=== PATIENT | male | born 1955 | race African-American/Black ===

== ENCOUNTER 2017-06-06 09:43 | Emergency (ER) | payer MEDICARE, MEDICAID ==
[~2017-06-06] VITALS: Ht 188 cm; Wt 118.0 kg
[~2017-06-06 09:43] MED LIST: AMA4; AMLO10TA4; ASPI-1159 PO; CIME400T; CLON0.1T PO; CLOP75TA33 PO; DILT240C92 PO; FURO20TA4 PO; GABA-531 PO; HYDR-3280 PO; HYDR100T26 PO; METO50TA95; MORP30TA66 PO; OMEP20CA4; SIMV40TA2
[2017-06-06 09:59] VITALS: BP 195/107
== END 2017-06-06 15:57 | disposition left against medical advice (07) ==
LOC: ER 11:21
DX: Z53.21 Procedure and treatment not carried out due to patient leaving prior to being seen by health care provider (principal)

== ENCOUNTER 2017-07-15 15:26 | Emergency (ER) | payer MEDICARE, MEDICAID ==
[~2017-07-15] VITALS: Ht 190.5 cm; Wt 123.0 kg
[2017-07-15] MEDS ORDERED: SODIUM CHLORIDE 0.9% 1,000 ML IV ONE (15:53)
[2017-07-15] MEDS ORDERED: INSULIN REGULAR (HUMULIN R) UD 100 UNITS/ML SYR IV ONE (16:00)
[2017-07-15 16:40] LABS: BASOPHILS % 0.8 % (0.0-2.0); EOSINOPHILS % 2.1 % (0.0-5.0); HEMATOCRIT. 27.1 % (42.0-52.0); HEMOGLOBIN. 9.3 g/dL (14.0-18.0); LYMPHOCYTES % 17.6 % (20.0-50.0); MEAN CORPUSCULAR HEMOGLOBIN 29.6 pg (28.0-32.0); MEAN CORPUSCULAR VOLUME 86.8 fL (80.0-94.0); MEAN PLATELET VOLUME 8.5 fl (7.4-10.4); MONOCYTES % 7.6 % (2.0-8.0); NEUTROPHILS % 71.9 % (40.0-76.0); PLATELET 220 x1000/uL (130-400); RED BLOOD CELL COUNT 3.13 mill/uL (4.7-6.1); RED CELL DISTRIBUTION WIDTH 15.2 % (11.6-14.6)
[2017-07-15 16:48] VITALS: BP 129/76
[2017-07-15 16:52] LABS: PHOSPHORUS 4.2 mg/dL (2.5-4.9)
== END 2017-07-15 18:34 | disposition left against medical advice (07) ==
LOC: ER 15:46
DX: E11.649 Type 2 diabetes mellitus with hypoglycemia without coma (principal); I10 Essential (primary) hypertension; E11.9 Type 2 diabetes mellitus without complications; F17.200 Nicotine dependence, unspecified, uncomplicated; Z79.82 Long term (current) use of aspirin; Z86.73 Personal history of transient ischemic attack (TIA), and cerebral infarction without residual deficits; Z89.9 Acquired absence of limb, unspecified
CPT/HCPCS: 36415; 80048; 82962; 83735; 84100; 85025; 96360; 99284; J1815; J7030

== ENCOUNTER 2017-11-26 20:48 | Inpatient (IN) | payer MEDICARE, MEDICAID ==
[~2017-11-26] VITALS: Ht 188 cm; Wt 118.9 kg
[2017-11-26 21:37] LABS: BASOPHILS % 0.6 % (0.0-2.0); EOSINOPHILS % 1.5 % (0.0-5.0); HEMATOCRIT. 25.8 % (42.0-52.0); HEMOGLOBIN. 8.5 g/dL (14.0-18.0); LYMPHOCYTES % 13.3 % (20.0-50.0); MEAN CORPUSCULAR HEMOGLOBIN 29.3 pg (28.0-32.0); MEAN CORPUSCULAR VOLUME 89.3 fL (80.0-94.0); MEAN PLATELET VOLUME 9.6 fl (7.4-10.4); MONOCYTES % 4.7 % (2.0-8.0); NEUTROPHILS % 79.9 % (40.0-76.0); PLATELET 223 x1000/uL (130-400); RED BLOOD CELL COUNT 2.89 mill/uL (4.7-6.1); RED CELL DISTRIBUTION WIDTH 16.1 % (11.6-14.6)
[2017-11-26 21:41] LABS: PROTHROMBIN TIME 10.8 sec (9.4-11.6)
[2017-11-26 21:45] LABS: CHLORIDE 115 mEq/L (98-107)
[2017-11-26] MEDS ORDERED: FUROSEMIDE 40MG/4ML VIAL IVP ONE (22:30)
[2017-11-26] MEDS ORDERED: ENALAPRIL 2.5MG/2ML VIAL 2ML IV ONE (22:30)
[2017-11-26] MEDS ORDERED: ASPIRIN 325MG EC TABLET PO ONE (23:15)
[2017-11-27] VITALS (11 sets, daily range): BP systolic 101–208; BP diastolic 53–110
[2017-11-27 00:08] LABS: BG BASE EXCESS -6.8 mmol/L (-2.0-2.0); BG CARBOXYHEMOGLOBIN 0.3 % (0.5-1.5); BG DEOXYHEMOGLOBIN 0.7 % (0.0-5.0); BG FRACTION INSPIRED OXYGEN 100; BG HCO3 ACT 18.5 mmol/L (22.0-26.0); BG METHEMOGLOBIN 0.6 % (0.0-1.5); BG OXYGEN SATURATION 99.3 % (92.0-98.5); BG OXYHEMOGLOBIN 98.4 % (94.0-97.0); BG PCO2 35.9 mmHg (35.0-45.0); BG PO2 443.8 mmHg (75.0-100.0); BG PRESSURE SUPPORT 7; BG SAMPLE SITE RIGHT BRACHIAL; BG TOTAL HEMOGLOBIN 8.7 g/dL (12.0-18.0); BG VENT MODE MASK - BIPAP; BG VENT RATE 16 set
[2017-11-27] MEDS ORDERED: IPRATROPIUM/ALBUTEROL 0.5-3(2.5)MG/3ML NEB HHN PRN (01:15)
[2017-11-27] MEDS ORDERED: ACETAMINOPHEN 325MG TABLET PO PRN (01:15)
[2017-11-27] MEDS ORDERED: MORPHINE SULFATE 4 MG/ML CPJ (NOT FOR IM USE) IV PRN (01:15)
[2017-11-27 02:34] LABS: CREATINE KINASE MB FRACTION 16.6 ng/mL (0.5-3.6); TROPONIN I 0.12 ng/mL (0.00-0.04)
[2017-11-27] MEDS: HYDRALAZINE HCL 50MG TABLET PO SCH ×4 (03:34→22:11)
[2017-11-27] MEDS: CLONIDINE 0.2MG TABLET PO SCH ×4 (03:35→22:12)
[2017-11-27] MEDS: OMEPRAZOLE 20MG CAPSULE EXTENDED RELEASE PO SCH (08:22)
[2017-11-27] MEDS: GLIMEPIRIDE 4MG TABLET PO SCH (08:23)
[2017-11-27] MEDS ORDERED: NON FORMULARY PATIENT HOME MED EA PO SCH (09:00)
[2017-11-27] MEDS ORDERED: FUROSEMIDE 40MG/4ML VIAL IVP SCH (09:00)
[2017-11-27] MEDS: GABAPENTIN 300MG CAPSULE PO SCH ×3 (09:44→17:02)
[2017-11-27] MEDS: ASPIRIN 81MG TABLET PO SCH (09:44)
[2017-11-27] MEDS: CLOPIDOGREL 75MG TABLET PO SCH (09:44)
[2017-11-27] MEDS: AMLODIPINE 10MG TABLET PO SCH (09:44)
[2017-11-27] MEDS: METOPROLOL TARTRATE 50MG TABLET PO SCH ×2 (09:45→22:12)
[2017-11-27] MEDS: HEPARIN 5000 UNITS/ML VIAL SUBCUT SCH ×2 (09:46→22:13)
[2017-11-27 12:27] LABS: BASOPHILS % 0.2 % (0.0-2.0); EOSINOPHILS % 1.7 % (0.0-5.0); HEMATOCRIT. 22.2 % (42.0-52.0); HEMOGLOBIN. 7.1 g/dL (14.0-18.0); LYMPHOCYTES % 12.5 % (20.0-50.0); MEAN CORPUSCULAR HEMOGLOBIN 28.6 pg (28.0-32.0); MEAN CORPUSCULAR VOLUME 89.2 fL (80.0-94.0); MEAN PLATELET VOLUME 9.8 fl (7.4-10.4); MONOCYTES % 4.9 % (2.0-8.0); NEUTROPHILS % 80.7 % (40.0-76.0); PLATELET 164 x1000/uL (130-400); RED BLOOD CELL COUNT 2.48 mill/uL (4.7-6.1); RED CELL DISTRIBUTION WIDTH 15.7 % (11.6-14.6)
[2017-11-27 12:55] LABS: CHLORIDE 116 mEq/L (98-107)
[2017-11-27 13:03] LABS: HDL CHOLESTEROL 46 mg/dL (40-59); LDL CHOLESTEROL 137 mg/dL (5-100); TROPONIN I 0.11 ng/mL (0.00-0.04)
[2017-11-27] MEDS ORDERED: SODIUM POLYSTYRENE SULFONATE 15 G/60 ML BOT PO NR (13:45)
[2017-11-27] MEDS ORDERED: NICOTINE 21MG PATCH TD NR (16:00)
[2017-11-27] MEDS ORDERED: ATORVASTATIN CALCIUM 20MG TABLET PO SCH (21:00)
[2017-11-28] VITALS (11 sets, daily range): BP systolic 121–160; BP diastolic 65–98
[2017-11-28] MEDS: GLIMEPIRIDE 4MG TABLET PO SCH (06:39)
[2017-11-28] MEDS: HYDRALAZINE HCL 50MG TABLET PO SCH ×2 (06:39→14:38)
[2017-11-28] MEDS: OMEPRAZOLE 20MG CAPSULE EXTENDED RELEASE PO SCH (06:39)
[2017-11-28] MEDS: CLONIDINE 0.2MG TABLET PO SCH ×2 (06:39→14:38)
[2017-11-28 07:16] LABS: BASOPHILS % 0.4 % (0.0-2.0); EOSINOPHILS % 1.3 % (0.0-5.0); HEMATOCRIT 24.8 % (42.0-52.0); HEMATOCRIT. 24.8 % (42.0-52.0); HEMOGLOBIN 8.1 g/dL (14.0-18.0); HEMOGLOBIN. 8.1 g/dL (14.0-18.0); LYMPHOCYTES % 15.1 % (20.0-50.0); MEAN CORPUSCULAR HEMOGLOBIN 28.9 pg (28.0-32.0); MEAN PLATELET VOLUME 10.4 fl (7.4-10.4); MONOCYTES % 6.8 % (2.0-8.0); NEUTROPHILS % 76.4 % (40.0-76.0); PLATELET 175 x1000/uL (130-400); RED BLOOD CELL COUNT 2.82 mill/uL (4.7-6.1); RED CELL DISTRIBUTION WIDTH 15.9 % (11.6-14.6)
[2017-11-28] MEDS ORDERED: SODIUM POLYSTYRENE SULFONATE 15 G/60 ML BOT PO NR (08:45)
[2017-11-28] MEDS ORDERED: NICOTINE 21MG PATCH TD SCH (09:00)
[2017-11-28] MEDS ORDERED: FUROSEMIDE 40MG/4ML VIAL IVP SCH (09:00)
[2017-11-28] MEDS: AMLODIPINE 10MG TABLET PO SCH (09:02)
[2017-11-28] MEDS: CITRIC ACID/SODIUM CITRATE SOLN 30ML UDC PO SCH ×2 (09:02→13:20)
[2017-11-28] MEDS: ASPIRIN 81MG TABLET PO SCH (09:02)
[2017-11-28] MEDS: METOPROLOL TARTRATE 50MG TABLET PO SCH (09:02)
[2017-11-28] MEDS: HEPARIN 5000 UNITS/ML VIAL SUBCUT SCH (09:03)
[2017-11-28] MEDS: CLOPIDOGREL 75MG TABLET PO SCH (09:14)
[2017-11-28] MEDS ORDERED: EPOETIN ALFA 10000UNITS/ML VIAL SUBCUT SCH (21:00)
== END 2017-11-28 15:40 | disposition home or self-care (01) | DRG 291 ==
LOC: ER 20:55 → 5EST 23:09 → EDBEDREQTM 23:12 → EDBEDREQ 23:12 → ENRESERV 23:23
PROVIDERS: ADMIT Internal Medicine; ATTEND Internal Medicine
PROC: 5A09357 Assistance with Respiratory Ventilation, Less than 24 Consecutive Hours, Continuous Positive Airway Pressure (ICD-10-PCS; principal; 2017-11-26)
PROC: 30233N1 Transfusion of Nonautologous Red Blood Cells into Peripheral Vein, Percutaneous Approach (ICD-10-PCS; 2017-11-27)
DX: I13.2 Hypertensive heart and chronic kidney disease with heart failure and with stage 5 chronic kidney disease, or end stage renal disease (principal); J96.00 Acute respiratory failure, unspecified whether with hypoxia or hypercapnia; E87.2 Acidosis; N18.6 End stage renal disease; N17.9 Acute kidney failure, unspecified; J44.1 Chronic obstructive pulmonary disease with (acute) exacerbation; M62.82 Rhabdomyolysis; E11.22 Type 2 diabetes mellitus with diabetic chronic kidney disease; D63.1 Anemia in chronic kidney disease; I50.9 Heart failure, unspecified; E87.5 Hyperkalemia; F17.210 Nicotine dependence, cigarettes, uncomplicated; Z79.82 Long term (current) use of aspirin; Z79.84 Long term (current) use of oral hypoglycemic drugs; Z79.899 Other long term (current) drug therapy; Z87.01 Personal history of pneumonia (recurrent); Z72.89 Other problems related to lifestyle; Z99.2 Dependence on renal dialysis
CPT/HCPCS: 36415; 36430; 36600; 70450; 71045; 76770; 80048; 80053; 80061; 82375; 82550; 82553; 82805; 82962; 83036; 83880; 84484; 85025; 85027; 85610; 86850; 86900; 86920; 93005; 93306; 94660; 96374; 96375; 99291; J1644; J1940; J3490; J7050; P9016

== ENCOUNTER 2017-11-29 10:10 | Inpatient (IN) | payer MEDICARE, MEDICAID ==
[~2017-11-29] VITALS: Ht 188 cm; Wt 115.7 kg
[~2017-11-29 10:10] MED LIST changes: -FURO20TA4 PO; -GABA-531 PO
[2017-11-29 11:27] LABS: BASOPHILS % 0.6 % (0.0-2.0); EOSINOPHILS % 0.8 % (0.0-5.0); HEMOGLOBIN. 8.3 g/dL (14.0-18.0); LYMPHOCYTES % 7.4 % (20.0-50.0); MEAN CORPUSCULAR HEMOGLOBIN 29.5 pg (28.0-32.0); MEAN CORPUSCULAR VOLUME 89.2 fL (80.0-94.0); MEAN PLATELET VOLUME 10.2 fl (7.4-10.4); MONOCYTES % 5.2 % (2.0-8.0); PLATELET 174 x1000/uL (130-400); RED CELL DISTRIBUTION WIDTH 15.9 % (11.6-14.6)
[2017-11-29 11:30] LABS: PROTHROMBIN TIME 10.7 sec (9.4-11.6)
[2017-11-29 11:32] LABS: CHLORIDE 115 mEq/L (98-107)
[2017-11-29] MEDS ORDERED: FUROSEMIDE 40MG/4ML VIAL IVP ONE (12:00)
[2017-11-29] MEDS ORDERED: ASPIRIN 325MG TABLET PO ONE (12:00)
[2017-11-29] MEDS ORDERED: LEVOFLOXACIN 750MG PREMIX 150 ML IV ONE (12:00)
[2017-11-29] MEDS ORDERED: NITROGLYCERIN OINT 1GM/INCH UDPKT TD ONE (12:00)
[2017-11-29] MEDS ORDERED: HYDROCODONE/ACETAMINOPHEN 5/325MG TABLET PO PRN (15:30)
[2017-11-29] MEDS ORDERED: ENOXAPARIN 40MG/0.4ML SYR SUBCUT SCH (15:30)
[2017-11-29] MEDS ORDERED: MAGNESIUM/ALUMINUM HYDROXIDE/SIMETHICONE 30ML UDC PO PRN (15:30)
[2017-11-29] MEDS ORDERED: DOCUSATE SODIUM 100MG CAPSULE PO PRN (15:30)
[2017-11-29] MEDS ORDERED: ACETAMINOPHEN 325MG TABLET PO PRN (15:30)
[2017-11-29] MEDS ORDERED: DIPHENHYDRAMINE 50MG/ML VIAL IV PRN (15:30)
[2017-11-29] MEDS ORDERED: CLONIDINE 0.1MG TABLET PO PRN (15:30)
[2017-11-29] MEDS ORDERED: IPRATROPIUM/ALBUTEROL 0.5-3(2.5)MG/3ML NEB INH PRN (15:30)
[2017-11-29] MEDS ORDERED: ONDANSETRON HCL 4MG/2ML VIAL IV PRN (15:30)
[2017-11-29 17:00] VITALS: BP 170/96
[2017-11-29] MEDS: ASPIRIN 81MG EC TABLET PO SCH (17:47)
[2017-11-29] MEDS: AMLODIPINE 10MG TABLET PO SCH (17:47)
[2017-11-29] MEDS ORDERED: ENOXAPARIN 30MG/0.3ML SYR SUBCUT SCH (18:00)
[2017-11-29] MEDS ORDERED: DEXTROSE 50% WATER 50ML SYRINGE IV PRN (19:30)
[2017-11-29 20:00] VITALS: BP 154/89
[2017-11-29] MEDS: INSULIN LISPRO 100 UNITS/ML SUBCUT SCH (20:37)
[2017-11-29] MEDS: BLOOD SUGAR DIAGNOSTIC STRIP TEST SCH (20:37)
[2017-11-30] VITALS: BP 138/69
[2017-11-30 04:00] VITALS: BP 150/83
[2017-11-30] MEDS: INSULIN LISPRO 100 UNITS/ML SUBCUT SCH ×2 (06:13→12:13)
[2017-11-30] MEDS: BLOOD SUGAR DIAGNOSTIC STRIP TEST SCH ×2 (06:13→12:13)
[2017-11-30 07:24] LABS: BASOPHILS % 0.4 % (0.0-2.0); EOSINOPHILS % 1.7 % (0.0-5.0); HEMATOCRIT. 24.2 % (42.0-52.0); HEMOGLOBIN. 8.1 g/dL (14.0-18.0); LYMPHOCYTES % 14.9 % (20.0-50.0); MEAN CORPUSCULAR HEMOGLOBIN 29.6 pg (28.0-32.0); MEAN CORPUSCULAR VOLUME 88.1 fL (80.0-94.0); MEAN PLATELET VOLUME 10.3 fl (7.4-10.4); MONOCYTES % 5.9 % (2.0-8.0); NEUTROPHILS % 77.1 % (40.0-76.0); PLATELET 176 x1000/uL (130-400); RED BLOOD CELL COUNT 2.75 mill/uL (4.7-6.1); RED CELL DISTRIBUTION WIDTH 15.7 % (11.6-14.6)
[2017-11-30 07:46] VITALS: BP 165/91
[2017-11-30] MEDS: AMLODIPINE 10MG TABLET PO SCH (08:29)
[2017-11-30] MEDS: ASPIRIN 81MG EC TABLET PO SCH (08:30)
[2017-11-30] MEDS ORDERED: FUROSEMIDE 40MG/4ML VIAL IV SCH ×2 (09:00→17:00)
[2017-11-30 09:13] LABS: CHLORIDE 115 mEq/L (98-107)
[2017-11-30] MEDS ORDERED: ACETYLCYSTEINE 100MG/ML 10% VIAL 4ML INH SCH (09:30)
[2017-11-30] MEDS ORDERED: SODIUM POLYSTYRENE SULFONATE 15 G/60 ML BOT PO SCH (09:30)
[2017-11-30 09:34] LABS: HDL CHOLESTEROL 46 mg/dL (40-59); LDL CHOLESTEROL 126 mg/dL (5-100)
[2017-11-30 12:20] VITALS: BP 171/92
[2017-11-30 15:10] VITALS: BP 166/90
[2017-11-30] MEDS ORDERED: SODIUM POLYSTYRENE SULFONATE 15 G/60 ML BOT PO NR (16:30)
[2017-11-30] MEDS ORDERED: EPOETIN ALFA 10000UNITS/ML VIAL SUBCUT SCH (21:00)
== END 2017-11-30 17:25 | disposition home or self-care (01) | DRG 291 ==
LOC: ER 10:10 → 8WST 11:57 → SUPCPDRO 15:14 → ENRESERV 15:27
PROVIDERS: ADMIT Hospitalist; ATTEND Hospitalist
DX: I13.2 Hypertensive heart and chronic kidney disease with heart failure and with stage 5 chronic kidney disease, or end stage renal disease (principal); J96.00 Acute respiratory failure, unspecified whether with hypoxia or hypercapnia; N17.0 Acute kidney failure with tubular necrosis; I50.23 Acute on chronic systolic (congestive) heart failure; N18.5 Chronic kidney disease, stage 5; E11.22 Type 2 diabetes mellitus with diabetic chronic kidney disease; E87.5 Hyperkalemia; E66.9 Obesity, unspecified; D63.1 Anemia in chronic kidney disease; F17.200 Nicotine dependence, unspecified, uncomplicated; Z87.01 Personal history of pneumonia (recurrent); Z79.899 Other long term (current) drug therapy; Z72.89 Other problems related to lifestyle; Z68.32 Body mass index [BMI] 32.0-32.9, adult
CPT/HCPCS: 36415; 71045; 80048; 80053; 80061; 82962; 83880; 84484; 85025; 85610; 87040; 93005; 96365; 96366; 96375; 99285; J1650; J1940; J1956; J7608

== ENCOUNTER 2017-12-01 06:38 | Inpatient (IN) | payer MEDICARE, MEDICAID ==
[~2017-12-01] VITALS: Ht 180.3 cm; Wt 108.9 kg
[2017-12-01] MEDS ORDERED: NITROGLYCERIN 50MG PREMIX 250 ML IV ONE ×2 (06:47→06:48)
[2017-12-01 07:03] LABS: BASOPHILS % 0.7 % (0.0-2.0); EOSINOPHILS % 1.2 % (0.0-5.0); HEMATOCRIT. 30.8 % (42.0-52.0); HEMOGLOBIN. 10.2 g/dL (14.0-18.0); LYMPHOCYTES % 20.4 % (20.0-50.0); MEAN CORPUSCULAR HEMOGLOBIN 29.4 pg (28.0-32.0); MEAN PLATELET VOLUME 9.6 fl (7.4-10.4); MONOCYTES % 7.4 % (2.0-8.0); NEUTROPHILS % 70.3 % (40.0-76.0); PLATELET 250 x1000/uL (130-400); RED BLOOD CELL COUNT 3.46 mill/uL (4.7-6.1); RED CELL DISTRIBUTION WIDTH 15.9 % (11.6-14.6)
[2017-12-01 07:10] LABS: INR 1.1; PROTHROMBIN TIME 11.3 sec (9.4-11.6)
[2017-12-01 07:13] LABS: CHLORIDE 116 mEq/L (98-107)
[2017-12-01] MEDS ORDERED: FUROSEMIDE 40MG/4ML VIAL IVP ONE (08:30)
[2017-12-01] MEDS ORDERED: LEVOFLOXACIN 500MG PREMIX 100 ML IV SCH ×2 (09:45→11:45)
[2017-12-01] MEDS ORDERED: GUAIFENESIN 200MG/10ML SUGAR FREE UDC PO PRN (09:45)
[2017-12-01] MEDS ORDERED: DOCUSATE SODIUM 100MG CAPSULE PO PRN (09:45)
[2017-12-01] MEDS ORDERED: CLONIDINE 0.1MG TABLET PO PRN (09:45)
[2017-12-01] MEDS ORDERED: DIPHENHYDRAMINE 50MG/ML VIAL IV PRN (09:45)
[2017-12-01] MEDS ORDERED: MORPHINE SULFATE 4 MG/ML CPJ (NOT FOR IM USE) IV PRN (09:45)
[2017-12-01] MEDS ORDERED: ONDANSETRON HCL 4MG/2ML VIAL IV PRN (09:45)
[2017-12-01] MEDS ORDERED: NA PHOS,M-B/NA PHOS,DI-BA ENEMA 118ML PR PRN (09:45)
[2017-12-01] MEDS ORDERED: LORAZEPAM 2MG/ML CPJ IV PRN (09:45)
[2017-12-01] MEDS ORDERED: IPRATROPIUM/ALBUTEROL 0.5-3(2.5)MG/3ML NEB INH PRN (09:45)
[2017-12-01] MEDS ORDERED: MAGNESIUM/ALUMINUM HYDROXIDE/SIMETHICONE 30ML UDC PO PRN (09:45)
[2017-12-01] MEDS ORDERED: BUDESONIDE 0.5MG/2ML NEB HHN SCH (10:15)
[2017-12-01 10:17] LABS: BG BASE EXCESS -9.8 mmol/L (-2.0-2.0); BG CARBOXYHEMOGLOBIN 0.3 % (0.5-1.5); BG FRACTION INSPIRED OXYGEN 21; BG HCO3 ACT 15.8 mmol/L (22.0-26.0); BG METHEMOGLOBIN 0.3 % (0.0-1.5); BG OXYGEN SATURATION 70.8 % (92.0-98.5); BG OXYHEMOGLOBIN 70.4 % (94.0-97.0); BG PCO2 33.3 mmHg (35.0-45.0); BG PH 7.293 (7.350-7.450); BG SAMPLE SITE RIGHT RADIAL; BG VENT MODE ROOM AIR
[2017-12-01] MEDS: LOSARTAN POTASSIUM 50 MG TABLET PO SCH (11:00)
[2017-12-01 11:28] LABS: BG BASE EXCESS -7.5 mmol/L (-2.0-2.0); BG CARBOXYHEMOGLOBIN 0.3 % (0.5-1.5); BG DEOXYHEMOGLOBIN 5.1 % (0.0-5.0); BG FRACTION INSPIRED OXYGEN 30; BG HCO3 ACT 17.8 mmol/L (22.0-26.0); BG METHEMOGLOBIN 0.2 % (0.0-1.5); BG OXYGEN SATURATION 94.9 % (92.0-98.5); BG OXYHEMOGLOBIN 94.4 % (94.0-97.0); BG PCO2 35.2 mmHg (35.0-45.0); BG PH 7.322 (7.350-7.450); BG PO2 85.8 mmHg (75.0-100.0); BG SAMPLE SITE RIGHT BRACHIAL; BG TOTAL HEMOGLOBIN 9.1 g/dL (12.0-18.0); BG VENT MODE NASAL CANNULA
[2017-12-01] MEDS ORDERED: LIDOCAINE HCL 1% 20ML VIAL (Pyxis) INJ ONE (11:47)
[2017-12-01] MEDS: NIFEDIPINE XL 60MG TAB PO SCH ×2 (13:28→22:24)
[2017-12-01 13:51] LABS: HEPATITIS B SURFACE AB < 3.1 mIU/mL
[2017-12-01 14:02] LABS: HEPATITIS B SURFACE ANTIGEN NEGATIVE
[2017-12-01] MEDS: HYDRALAZINE HCL 100MG TABLET PO SCH ×2 (14:21→22:24)
[2017-12-01 14:31] LABS: HEPATITIS B CORE AB IGM NEGATIVE
[2017-12-01 14:32] LABS: HEPATITIS A AB IGM React (NEGATIVE)
[2017-12-01] MEDS: CLONIDINE 0.3MG TABLET PO PRN (14:49)
[2017-12-01] MEDS ORDERED: IOHEXOL-350 100 ML BOTTLE ONE (14:57)
[2017-12-01] MEDS ORDERED: HYDROCODONE/ACETAMINOPHEN 10/325MG TABLET PO PRN (16:00)
[2017-12-01 20:30] VITALS: BP 167/91
[2017-12-01 22:00] VITALS: BP_SYST 148; BP_SYST 167; BP_DIAS 80; BP_DIAS 91
[2017-12-01] MEDS ORDERED: DEXTROSE 50% WATER 50ML SYRINGE IV PRN (23:30)
[2017-12-02] VITALS (26 sets, daily range): BP systolic 125–175; BP diastolic 62–98
[2017-12-02] MEDS: IPRATROPIUM/ALBUTEROL 0.5-3(2.5)MG/3ML NEB HHN SCH ×6 (00:48→20:25)
[2017-12-02] MEDS: BUDESONIDE 0.5MG/2ML NEB HHN SCH ×3 (00:48→20:25)
[2017-12-02] MEDS: ACETAMINOPHEN 325MG TABLET PO PRN ×2 (05:35→23:28)
[2017-12-02] MEDS: HYDRALAZINE HCL 100MG TABLET PO SCH ×3 (05:36→21:07)
[2017-12-02] MEDS: BLOOD SUGAR DIAGNOSTIC STRIP TEST SCH ×4 (06:36→20:30)
[2017-12-02] MEDS: OMEPRAZOLE 20MG CAPSULE EXTENDED RELEASE PO SCH (06:45)
[2017-12-02] MEDS: INSULIN LISPRO 100 UNITS/ML SUBCUT SCH ×4 (07:23→20:37)
[2017-12-02] MEDS: GLIMEPIRIDE 4MG TABLET PO SCH (08:03)
[2017-12-02] MEDS: CLOPIDOGREL 75MG TABLET PO SCH (08:03)
[2017-12-02] MEDS: ASPIRIN 81MG EC TABLET PO SCH (08:04)
[2017-12-02] MEDS: NIFEDIPINE XL 60MG TAB PO SCH ×2 (08:04→20:25)
[2017-12-02] MEDS: LOSARTAN POTASSIUM 50 MG TABLET PO SCH (08:04)
[2017-12-02] MEDS: METOPROLOL TARTRATE 50MG TABLET PO SCH ×2 (08:04→20:25)
[2017-12-02 08:40] LABS: BASOPHILS % 0.5 % (0.0-2.0); EOSINOPHILS % 1.4 % (0.0-5.0); HEMATOCRIT. 26.5 % (42.0-52.0); LYMPHOCYTES % 13.4 % (20.0-50.0); MEAN CORPUSCULAR HEMOGLOBIN 29.5 pg (28.0-32.0); MEAN CORPUSCULAR VOLUME 87.2 fL (80.0-94.0); MEAN PLATELET VOLUME 9.9 fl (7.4-10.4); NEUTROPHILS % 76.7 % (40.0-76.0); PLATELET 200 x1000/uL (130-400); RED BLOOD CELL COUNT 3.04 mill/uL (4.7-6.1); RED CELL DISTRIBUTION WIDTH 15.6 % (11.6-14.6)
[2017-12-02] MEDS ORDERED: ASPIRIN 81MG EC TABLET PO SCH (09:00)
[2017-12-02] MEDS ORDERED: MEDICATION NOT ON FORMULARY EA (Simvastatin (Zocor) 40 MG) PO SCH (09:00)
[2017-12-02] MEDS ORDERED: AMLODIPINE 10MG TABLET PO SCH (09:00)
[2017-12-02 09:14] LABS: CHLORIDE 106 mEq/L (98-107)
[2017-12-02 09:24] LABS: HDL CHOLESTEROL 47 mg/dL (40-59); LDL CHOLESTEROL 149 mg/dL (5-100); T4 FREE 1.09 ng/dL (0.76-1.46)
[2017-12-02] MEDS ORDERED: MAGNESIUM 2 G PREMIX 50 ML IV NR (11:30)
[2017-12-02] MEDS: ATORVASTATIN CALCIUM 20MG TABLET PO SCH (20:24)
[2017-12-03] VITALS (8 sets, daily range): BP systolic 136–192; BP diastolic 71–86
[2017-12-03] MEDS: IPRATROPIUM/ALBUTEROL 0.5-3(2.5)MG/3ML NEB HHN SCH ×3 (00:32→19:37)
[2017-12-03 06:49] LABS: BASOPHILS % 0.6 % (0.0-2.0); EOSINOPHILS % 1.1 % (0.0-5.0); HEMATOCRIT. 24.8 % (42.0-52.0); HEMOGLOBIN. 8.3 g/dL (14.0-18.0); LYMPHOCYTES % 12.7 % (20.0-50.0); MEAN CORPUSCULAR HEMOGLOBIN 29.3 pg (28.0-32.0); MEAN CORPUSCULAR VOLUME 87.8 fL (80.0-94.0); MEAN PLATELET VOLUME 9.7 fl (7.4-10.4); MONOCYTES % 8.5 % (2.0-8.0); NEUTROPHILS % 77.1 % (40.0-76.0); PLATELET 198 x1000/uL (130-400); RED BLOOD CELL COUNT 2.83 mill/uL (4.7-6.1); RED CELL DISTRIBUTION WIDTH 15.6 % (11.6-14.6)
[2017-12-03] MEDS: OMEPRAZOLE 20MG CAPSULE EXTENDED RELEASE PO SCH (06:50)
[2017-12-03] MEDS: HYDRALAZINE HCL 100MG TABLET PO SCH ×3 (06:50→21:14)
[2017-12-03 07:18] LABS: PHOSPHORUS 5.7 mg/dL (2.5-4.9)
[2017-12-03] MEDS: BLOOD SUGAR DIAGNOSTIC STRIP TEST SCH ×4 (07:50→20:00)
[2017-12-03] MEDS: INSULIN LISPRO 100 UNITS/ML SUBCUT SCH ×4 (08:00→20:06)
[2017-12-03] MEDS: LOSARTAN POTASSIUM 50 MG TABLET PO SCH (08:51)
[2017-12-03] MEDS: ASPIRIN 81MG EC TABLET PO SCH (08:51)
[2017-12-03] MEDS: CLOPIDOGREL 75MG TABLET PO SCH (08:51)
[2017-12-03] MEDS: GLIMEPIRIDE 4MG TABLET PO SCH (08:51)
[2017-12-03] MEDS: METOPROLOL TARTRATE 50MG TABLET PO SCH ×2 (08:52→20:02)
[2017-12-03] MEDS: NIFEDIPINE XL 60MG TAB PO SCH ×2 (08:52→20:01)
[2017-12-03] MEDS: LEVOFLOXACIN 250MG PREMIX 50 ML IV SCH (08:53)
[2017-12-03] MEDS: ENOXAPARIN 40MG/0.4ML SYR SUBCUT SCH (11:00)
[2017-12-03] MEDS: NICOTINE 7MG PATCH TD SCH (12:52)
[2017-12-03] MEDS: BUDESONIDE 0.5MG/2ML NEB HHN SCH (19:39)
[2017-12-03] MEDS: ATORVASTATIN CALCIUM 20MG TABLET PO SCH (20:01)
[2017-12-04] VITALS (20 sets, daily range): BP systolic 147–199; BP diastolic 68–93
[2017-12-04] MEDS: IPRATROPIUM/ALBUTEROL 0.5-3(2.5)MG/3ML NEB HHN SCH ×7 (00:19→19:39)
[2017-12-04] MEDS: HYDRALAZINE HCL 100MG TABLET PO SCH ×3 (05:21→20:49)
[2017-12-04] MEDS: OMEPRAZOLE 20MG CAPSULE EXTENDED RELEASE PO SCH (06:32)
[2017-12-04 06:44] LABS: BASOPHILS % 0.5 % (0.0-2.0); EOSINOPHILS % 2.6 % (0.0-5.0); HEMATOCRIT. 24.6 % (42.0-52.0); HEMOGLOBIN. 8.3 g/dL (14.0-18.0); LYMPHOCYTES % 16.1 % (20.0-50.0); MEAN CORPUSCULAR HEMOGLOBIN 29.7 pg (28.0-32.0); MEAN CORPUSCULAR VOLUME 87.8 fL (80.0-94.0); MEAN PLATELET VOLUME 9.3 fl (7.4-10.4); MONOCYTES % 8.8 % (2.0-8.0); PLATELET 186 x1000/uL (130-400); RED CELL DISTRIBUTION WIDTH 15.6 % (11.6-14.6)
[2017-12-04] MEDS: BLOOD SUGAR DIAGNOSTIC STRIP TEST SCH ×4 (07:34→20:53)
[2017-12-04] MEDS: INSULIN LISPRO 100 UNITS/ML SUBCUT SCH ×4 (07:55→21:29)
[2017-12-04] MEDS: BUDESONIDE 0.5MG/2ML NEB HHN SCH ×2 (08:25→19:39)
[2017-12-04] MEDS: GLIMEPIRIDE 4MG TABLET PO SCH (08:35)
[2017-12-04] MEDS: LOSARTAN POTASSIUM 100 MG TABLET PO SCH (08:36)
[2017-12-04] MEDS: METOPROLOL TARTRATE 50MG TABLET PO SCH ×2 (08:36→20:40)
[2017-12-04] MEDS: NIFEDIPINE XL 60MG TAB PO SCH ×2 (08:37→20:40)
[2017-12-04] MEDS ORDERED: HEPARIN 1000 UNITS/ML 10ML ONE (09:09)
[2017-12-04] MEDS ORDERED: SODIUM BICARBONATE 4% (2.4MEQ) 5ML VIAL IV ONE (09:09)
[2017-12-04] MEDS ORDERED: LIDOCAINE HCL 1% 20ML VIAL (Pyxis) INJ ONE (09:09)
[2017-12-04] MEDS ORDERED: FENTANYL CITRATE/PF 50MCG/ML 2ML VIAL ONE (09:13)
[2017-12-04] MEDS ORDERED: FENTANYL CITRATE/PF 50MCG/ML 2ML VIAL IV SCH (09:45)
[2017-12-04 12:12] LABS: PROTHROMBIN TIME 10.7 sec (9.4-11.6)
[2017-12-04] MEDS: ENOXAPARIN 40MG/0.4ML SYR SUBCUT SCH (13:09)
[2017-12-04] MEDS: NICOTINE 7MG PATCH TD SCH (13:10)
[2017-12-04] MEDS: CLONIDINE 0.1MG TABLET PO SCH ×2 (13:39→20:48)
[2017-12-04] MEDS: CLONIDINE 0.3MG TABLET PO PRN (17:29)
[2017-12-04] MEDS: ATORVASTATIN CALCIUM 20MG TABLET PO SCH (20:39)
[2017-12-04] MEDS ORDERED: EPOETIN ALFA 10000UNITS/ML VIAL SUBCUT SCH (21:00)
[2017-12-05] VITALS: BP 117/80
[2017-12-05] MEDS: IPRATROPIUM/ALBUTEROL 0.5-3(2.5)MG/3ML NEB HHN SCH ×4 (00:30→12:09)
[2017-12-05 04:00] VITALS: BP 151/67
[2017-12-05] MEDS: CLONIDINE 0.1MG TABLET PO SCH (05:23)
[2017-12-05] MEDS: HYDRALAZINE HCL 100MG TABLET PO SCH (05:23)
[2017-12-05] MEDS: BLOOD SUGAR DIAGNOSTIC STRIP TEST SCH ×2 (07:30→11:43)
[2017-12-05] MEDS: INSULIN LISPRO 100 UNITS/ML SUBCUT SCH ×2 (08:00→13:05)
[2017-12-05] MEDS: BUDESONIDE 0.5MG/2ML NEB HHN SCH (08:01)
[2017-12-05] MEDS ORDERED: FAMOTIDINE 20MG TABLET PO SCH (09:00)
[2017-12-05] MEDS: GLIMEPIRIDE 4MG TABLET PO SCH (09:40)
[2017-12-05] MEDS: ENOXAPARIN 40MG/0.4ML SYR SUBCUT SCH (09:41)
[2017-12-05] MEDS: NICOTINE 7MG PATCH TD SCH (09:42)
[2017-12-05 09:43] LABS: BASOPHILS % 0.6 % (0.0-2.0); HEMATOCRIT. 27.7 % (42.0-52.0); HEMOGLOBIN. 9.2 g/dL (14.0-18.0); LYMPHOCYTES % 14.1 % (20.0-50.0); MEAN CORPUSCULAR HEMOGLOBIN 29.9 pg (28.0-32.0); MEAN CORPUSCULAR VOLUME 89.7 fL (80.0-94.0); MEAN PLATELET VOLUME 9.6 fl (7.4-10.4); MONOCYTES % 7.1 % (2.0-8.0); NEUTROPHILS % 76.2 % (40.0-76.0); PLATELET 197 x1000/uL (130-400); RED BLOOD CELL COUNT 3.09 mill/uL (4.7-6.1); RED CELL DISTRIBUTION WIDTH 15.8 % (11.6-14.6)
[2017-12-05] MEDS: NIFEDIPINE XL 60MG TAB PO SCH (09:43)
[2017-12-05] MEDS: METOPROLOL TARTRATE 50MG TABLET PO SCH (09:43)
[2017-12-05] MEDS: LOSARTAN POTASSIUM 100 MG TABLET PO SCH (09:45)
[2017-12-05] MEDS: LEVOFLOXACIN 250MG PREMIX 50 ML IV SCH (09:45)
[2017-12-05 12:00] VITALS: BP 132/77
[2017-12-05 13:59] VITALS: BP 103/54
[2017-12-05 15:50] VITALS: BP 144/82
[2017-12-06] MEDS ORDERED: LEVOFLOXACIN 250MG TABLET PO SCH (11:00)
== END 2017-12-05 15:38 | disposition home or self-care (01) | DRG 286 ==
LOC: ER 06:53 → 5EST 09:00 → EDBEDREQTM 09:01 → EDBEDREQ 09:01 → EDBEDREQSVC 09:01 → CANRESERV 15:23 → ENRESERV 15:23 → EDBEDREQSVC 16:49 → ENRESERV 18:47
PROVIDERS: ADMIT Internal Medicine; ATTEND Internal Medicine
PROC: 02HV33Z Insertion of Infusion Device into Superior Vena Cava, Percutaneous Approach (ICD-10-PCS; principal; 2017-12-01)
PROC: B548ZZA Ultrasonography of Superior Vena Cava, Guidance (ICD-10-PCS; 2017-12-01)
PROC: 5A09357 Assistance with Respiratory Ventilation, Less than 24 Consecutive Hours, Continuous Positive Airway Pressure (ICD-10-PCS; 2017-12-01)
PROC: 5A1D70Z Performance of Urinary Filtration, Intermittent, Less than 6 Hours Per Day (ICD-10-PCS; 2017-12-03)
PROC: B2141ZZ Fluoroscopy of Right Heart using Low Osmolar Contrast (ICD-10-PCS; 2017-12-04)
PROC: 02PYX3Z Removal of Infusion Device from Great Vessel, External Approach (ICD-10-PCS; 2017-12-04)
PROC: 02H633Z Insertion of Infusion Device into Right Atrium, Percutaneous Approach (ICD-10-PCS; 2017-12-04)
PROC: 5A1D70Z Performance of Urinary Filtration, Intermittent, Less than 6 Hours Per Day (ICD-10-PCS; 2017-12-04)
DX: I13.2 Hypertensive heart and chronic kidney disease with heart failure and with stage 5 chronic kidney disease, or end stage renal disease (principal); I50.43 Acute on chronic combined systolic (congestive) and diastolic (congestive) heart failure; J96.01 Acute respiratory failure with hypoxia; G93.41 Metabolic encephalopathy; N17.9 Acute kidney failure, unspecified; R65.10 Systemic inflammatory response syndrome (SIRS) of non-infectious origin without acute organ dysfunction; E11.22 Type 2 diabetes mellitus with diabetic chronic kidney disease; E87.2 Acidosis; N18.6 End stage renal disease; E87.5 Hyperkalemia; I16.1 Hypertensive emergency; I42.9 Cardiomyopathy, unspecified; E78.5 Hyperlipidemia, unspecified; D64.9 Anemia, unspecified; E66.9 Obesity, unspecified; F17.210 Nicotine dependence, cigarettes, uncomplicated; I25.10 Atherosclerotic heart disease of native coronary artery without angina pectoris; J44.9 Chronic obstructive pulmonary disease, unspecified; K21.9 Gastro-esophageal reflux disease without esophagitis; Z79.4 Long term (current) use of insulin; Z79.82 Long term (current) use of aspirin; Z79.899 Other long term (current) drug therapy; Z82.49 Family history of ischemic heart disease and other diseases of the circulatory system; Z83.3 Family history of diabetes mellitus; Z87.01 Personal history of pneumonia (recurrent); Z89.421 Acquired absence of other right toe(s); Z91.15 Patient's noncompliance with renal dialysis; Z99.2 Dependence on renal dialysis; Z72.89 Other problems related to lifestyle; Z68.33 Body mass index [BMI] 33.0-33.9, adult
CPT/HCPCS: 36415; 36556; 36558; 36589; 36600; 70450; 71045; 71275; 76937; 77001; 80048; 80051; 80053; 80061; 82375; 82805; 82962; 83735; 83880; 84100; 84439; 84443; 84484; 85025; 85610; 86705; 86706; 86709; 86803; 87340; 87804; 93005; 94640; 94660; 96365; 96375; 99291; C1750; C1752; C1769; J0885; J1644; J1650; J1815; J1940; J1956; J2060; J2270; J3010; J3475; J3490; J7030; J7050; J7620; J7626; Q9967

== ENCOUNTER 2018-06-08 20:47 | Emergency (ER) | payer MEDICARE, MEDICAID ==
[~2018-06-08] VITALS: Ht 190.5 cm; Wt 112.0 kg
[2018-06-08] MEDS ORDERED: HYDRALAZINE HCL 100MG TABLET PO ONE (22:45)
[2018-06-09 04:00] VITALS: BP 169/82
== END 2018-06-09 00:21 | disposition home or self-care (01) ==
LOC: ER 20:47
DX: S99.922A Unspecified injury of left foot, initial encounter (principal); I12.0 Hypertensive chronic kidney disease with stage 5 chronic kidney disease or end stage renal disease; E11.22 Type 2 diabetes mellitus with diabetic chronic kidney disease; N18.6 End stage renal disease; F17.200 Nicotine dependence, unspecified, uncomplicated; Z99.2 Dependence on renal dialysis; Z79.899 Other long term (current) drug therapy; W19.XXXA Unspecified fall, initial encounter; Y93.89 Activity, other specified; Y92.89 Other specified places as the place of occurrence of the external cause; Y99.8 Other external cause status
CPT/HCPCS: 73630; 82962; 99284

== ENCOUNTER 2018-12-18 05:52 | Emergency (ER) | payer MEDICARE, MEDICAID ==
[~2018-12-18] VITALS: Ht 188 cm; Wt 90.0 kg
[~2018-12-18 05:52] MED LIST changes: +ASPI-1079 PO; +ATOR-2 MT; +CEPH500T MT; +METO25TA6 PO; +MINO10TA MT; +SEVE800T8 MT
[2018-12-18] MEDS ORDERED: MORPHINE SULFATE 4 MG/ML CPJ (NOT FOR IM USE) IV STA (07:27)
[2018-12-18 07:40] LABS: BASOPHILS % 0.7 % (0.0-2.0); EOSINOPHILS % 3.8 % (0.0-5.0); HEMATOCRIT. 29.7 % (42.0-52.0); HEMOGLOBIN. 9.6 g/dL (14.0-18.0); LYMPHOCYTES % 21.4 % (20.0-50.0); MEAN CORPUSCULAR HEMOGLOBIN 27.8 pg (28.0-32.0); MEAN CORPUSCULAR VOLUME 85.6 fL (80.0-94.0); MONOCYTES % 6.5 % (2.0-8.0); NEUTROPHILS % 67.6 % (40.0-76.0); PLATELET 284 x1000/uL (130-400); RED BLOOD CELL COUNT 3.46 mill/uL (4.7-6.1); RED CELL DISTRIBUTION WIDTH 19.6 % (11.6-14.6)
[2018-12-18 07:42] LABS: CHLORIDE 102 mEq/L (98-107)
[2018-12-18 07:53] LABS: INR 1.1; PROTHROMBIN TIME 10.9 sec (9.1-11.1)
[2018-12-18] MEDS ORDERED: KETOROLAC 30MG/ML VIAL IV ONE (08:15)
[2018-12-18] MEDS ORDERED: SODIUM CHLORIDE 0.9% 500 ML IV ONE (09:34)
[2018-12-18 12:55] VITALS: BP 112/60
== END 2018-12-18 12:59 | disposition home or self-care (01) ==
LOC: ER 05:52
DX: L89.159 Pressure ulcer of sacral region, unspecified stage (principal); R42 Dizziness and giddiness; Z98.890 Other specified postprocedural states; Z79.82 Long term (current) use of aspirin; Z79.899 Other long term (current) drug therapy
CPT/HCPCS: 36415; 71045; 80053; 83605; 84145; 84484; 85025; 85610; 87040; 93005; 96361; 96374; 99284; J1885; J7030; J7040; J2270

== ENCOUNTER 2019-01-25 07:39 | Inpatient (IN) | payer MEDICARE, MEDICAID ==
[~2019-01-25] VITALS: Ht 185.4 cm; Wt 86.6 kg
[2019-01-25] MEDS ORDERED: ONDANSETRON HCL 4MG/2ML INJ IV STA (08:13)
[2019-01-25] MEDS ORDERED: MORPHINE SULFATE 4 MG/ML CPJ (NOT FOR IM USE) IV STA (08:13)
[2019-01-25] MEDS ORDERED: SODIUM CHLORIDE 0.9% 1,000 ML IV ONE (08:13)
[2019-01-25 08:38] LABS: BASOPHILS % 0.7 % (0.0-2.0); EOSINOPHILS % 1.4 % (0.0-5.0); HEMATOCRIT. 40.9 % (42.0-52.0); LYMPHOCYTES % 16.1 % (20.0-50.0); MEAN CORPUSCULAR HEMOGLOBIN 29.1 pg (28.0-32.0); MEAN CORPUSCULAR VOLUME 91.9 fL (80.0-94.0); NEUTROPHILS % 75.8 % (40.0-76.0); PLATELET 293 x1000/uL (130-400); RED BLOOD CELL COUNT 4.46 mill/uL (4.7-6.1); RED CELL DISTRIBUTION WIDTH 21.8 % (11.6-14.6)
[2019-01-25 08:42] LABS: CHLORIDE 115 mEq/L (98-107)
[2019-01-25 09:12] LABS: CLARITY URINE TURBID (CLEAR); COLOR URINE YELLOW (YELLOW); KETONES URINE NEGATIVE (NEGATIVE); LEUKOCYTE ESTERASE URINE 3+ (NEGATIVE); NITRITE URINE NEGATIVE (NEGATIVE); OCCULT BLOOD URINE 1+ (NEGATIVE); PROTEIN URINE 3+ (NEGATIVE); SPECIFIC GRAVITY URINE 1.016 (1.005-1.030); UROBILINOGEN URINE 0.2 E.U./dL (0.2-1.0)
[2019-01-25] MEDS ORDERED: DEXTROSE 50% WATER 50ML SYRINGE IV ONE (10:15)
[2019-01-25] MEDS ORDERED: CEFTRIAXONE 1 G PREMIX 50 ML IV ONE (10:15)
[2019-01-25] MEDS ORDERED: SODIUM POLYSTYRENE SULFONATE 15 G/60 ML BOT PO ONE ×2 (10:15→15:45)
[2019-01-25] MEDS ORDERED: SODIUM BICARBONATE 8.4% 1 MEQ/ML 50ML SYR IV ONE (10:15)
[2019-01-25] MEDS ORDERED: ALBUTEROL (0.083%) 2.5MG/3ML NEB HHN ONE (10:15)
[2019-01-25] MEDS ORDERED: INSULIN REGULAR (HUMULIN R) 300UNITS/3ML IV ONE (10:15)
[2019-01-25] MEDS ORDERED: MORPHINE SULFATE 4 MG/ML CPJ (NOT FOR IM USE) IV ONE (11:45)
[2019-01-25] MEDS ORDERED: NITROGLYCERIN 0.4MG TABLET SL SL PRN (12:15)
[2019-01-25] MEDS ORDERED: GUAIFENESIN 200MG/10ML SUGAR FREE UDC PO PRN (12:15)
[2019-01-25] MEDS ORDERED: TRAMADOL 50MG TABLET PO PRN (12:15)
[2019-01-25] MEDS ORDERED: ONDANSETRON HCL 4MG/2ML INJ IV PRN (12:15)
[2019-01-25] MEDS ORDERED: IPRATROPIUM/ALBUTEROL 0.5-3(2.5)MG/3ML NEB INH PRN (12:15)
[2019-01-25] MEDS ORDERED: MAGNESIUM/ALUMINUM HYDROXIDE/SIMETHICONE 30ML UDC PO PRN (12:15)
[2019-01-25] MEDS ORDERED: DIPHENHYDRAMINE 50MG/ML VIAL IV PRN (12:15)
[2019-01-25] MEDS ORDERED: ZOLPIDEM TARTRATE 5MG TABLET PO PRN (12:15)
[2019-01-25] MEDS ORDERED: DOCUSATE SODIUM 100MG CAPSULE PO PRN (12:15)
[2019-01-25 14:00] VITALS: BP 151/67
[2019-01-25 14:34] LABS: *AMPHETAMINES SCREEN URINE NEGATIVE (NEGATIVE); *BARBITURATES SCREEN URINE NEGATIVE (NEGATIVE); *BENZODIAZEPINES SCREEN URINE NEGATIVE (NEGATIVE); *COCAINE SCREEN URINE NEGATIVE (NEGATIVE); METHADONE URINE SCREEN NEGATIVE (NEGATIVE)
[2019-01-25 14:35] LABS: CANNABINOID URINE SCREEN NEGATIVE (NEGATIVE); OPIATES URINE SCREEN NEGATIVE (NEGATIVE); PHENCYCLIDINE URINE SCREEN NEGATIVE (NEGATIVE)
[2019-01-25 16:22] LABS: CREATINE KINASE MB FRACTION 4.9 ng/mL (0.5-3.6)
[2019-01-25 16:48] VITALS: BP 151/67
[2019-01-25] MEDS: SEVELAMER CARBONATE 800 MG TABLET PO SCH (17:15)
[2019-01-25] MEDS: ENOXAPARIN 30MG/0.3ML SYR SUBCUT SCH (17:15)
[2019-01-25 20:00] VITALS: BP 199/79
[2019-01-25] MEDS: FAMOTIDINE 20MG TABLET PO SCH (21:10)
[2019-01-25] MEDS: HYDRALAZINE HCL 50MG TABLET PO SCH (21:10)
[2019-01-25 21:11] VITALS: BP 177/76
[2019-01-25] MEDS: CLONIDINE 0.1MG TABLET PO PRN (21:11)
[2019-01-25] MEDS: METOPROLOL TARTRATE 25MG TABLET PO SCH (21:11)
[2019-01-25 23:46] LABS: CREATINE KINASE MB FRACTION 17.1 ng/mL (0.5-3.6)
[2019-01-26] VITALS: BP 160/65
[2019-01-26 04:00] VITALS: BP 161/75
[2019-01-26] MEDS: HYDRALAZINE HCL 50MG TABLET PO SCH ×3 (05:05→21:01)
[2019-01-26 08:00] VITALS: BP 192/79
[2019-01-26] MEDS: METOPROLOL TARTRATE 25MG TABLET PO SCH ×2 (08:17→21:01)
[2019-01-26] MEDS: SEVELAMER CARBONATE 800 MG TABLET PO SCH ×3 (08:18→17:51)
[2019-01-26] MEDS: TAMSULOSIN HCL 0.4MG SR CAPSULE PO SCH (08:18)
[2019-01-26] MEDS: CLOPIDOGREL 75MG TABLET PO SCH (08:19)
[2019-01-26] MEDS: ASPIRIN 325MG EC TABLET PO SCH (09:05)
[2019-01-26] MEDS: FOLIC ACID/VITAMIN B COMP W-C TABLET PO SCH (09:05)
[2019-01-26] MEDS ORDERED: CEFTRIAXONE 1 G PREMIX 50 ML IV SCH (11:00)
[2019-01-26] MEDS: ENOXAPARIN 30MG/0.3ML SYR SUBCUT SCH (13:11)
[2019-01-26 16:01] LABS: CREATINE KINASE MB FRACTION 15.2 ng/mL (0.5-3.6)
[2019-01-26] MEDS: CLONIDINE 0.1MG TABLET PO PRN (17:58)
[2019-01-26 20:00] VITALS: BP 186/89
[2019-01-26] MEDS: FAMOTIDINE 20MG TABLET PO SCH (21:01)
[2019-01-27] VITALS: BP 201/84
[2019-01-27] MEDS: CLONIDINE 0.1MG TABLET PO PRN ×4 (00:09→23:29)
[2019-01-27 04:00] VITALS: BP 200/83
[2019-01-27] MEDS: HYDRALAZINE HCL 50MG TABLET PO SCH ×3 (06:00→21:03)
[2019-01-27 06:18] LABS: BASOPHILS % 0.6 % (0.0-2.0); EOSINOPHILS % 3.8 % (0.0-5.0); HEMATOCRIT. 37.1 % (42.0-52.0); HEMOGLOBIN. 11.8 g/dL (14.0-18.0); LYMPHOCYTES % 25.5 % (20.0-50.0); MEAN CORPUSCULAR HEMOGLOBIN 29.2 pg (28.0-32.0); MEAN CORPUSCULAR VOLUME 91.7 fL (80.0-94.0); MEAN PLATELET VOLUME 7.7 fl (7.4-10.4); MONOCYTES % 5.5 % (2.0-8.0); NEUTROPHILS % 64.6 % (40.0-76.0); PLATELET 250 x1000/uL (130-400); RED BLOOD CELL COUNT 4.05 mill/uL (4.7-6.1); RED CELL DISTRIBUTION WIDTH 22.4 % (11.6-14.6)
[2019-01-27] MEDS: SEVELAMER CARBONATE 800 MG TABLET PO SCH ×3 (07:40→17:44)
[2019-01-27 08:00] VITALS: BP 177/63
[2019-01-27] MEDS: METOPROLOL TARTRATE 25MG TABLET PO SCH ×2 (09:00→21:03)
[2019-01-27 12:00] VITALS: BP 177/71
[2019-01-27] MEDS: ASPIRIN 325MG EC TABLET PO SCH (12:14)
[2019-01-27] MEDS: FOLIC ACID/VITAMIN B COMP W-C TABLET PO SCH (12:16)
[2019-01-27] MEDS: CLOPIDOGREL 75MG TABLET PO SCH (12:17)
[2019-01-27] MEDS: TAMSULOSIN HCL 0.4MG SR CAPSULE PO SCH (12:17)
[2019-01-27] MEDS: CEFTRIAXONE 1 G PREMIX 50 ML IV SCH (13:18)
[2019-01-27] MEDS: ENOXAPARIN 30MG/0.3ML SYR SUBCUT SCH (13:25)
[2019-01-27 15:46] LABS: PLATELET ESTIMATE NORMAL
[2019-01-27 16:00] VITALS: BP 187/73
[2019-01-27] MEDS: ACETAMINOPHEN 325MG TABLET PO PRN (17:44)
[2019-01-27 20:00] VITALS: BP 174/63
[2019-01-27] MEDS: FAMOTIDINE 20MG TABLET PO SCH (21:03)
[2019-01-28] VITALS (9 sets, daily range): BP systolic 142–216; BP diastolic 62–92
[2019-01-28] MEDS: CLONIDINE 0.1MG TABLET PO PRN ×2 (05:24→12:39)
[2019-01-28] MEDS: HYDRALAZINE HCL 50MG TABLET PO SCH (05:24)
[2019-01-28] MEDS ORDERED: HYDRALAZINE HCL 25MG TABLET PO NR (07:45)
[2019-01-28] MEDS: ASPIRIN 325MG EC TABLET PO SCH (08:28)
[2019-01-28] MEDS: METOPROLOL TARTRATE 25MG TABLET PO SCH ×2 (08:29→22:04)
[2019-01-28] MEDS: SEVELAMER CARBONATE 800 MG TABLET PO SCH ×3 (08:29→17:38)
[2019-01-28] MEDS: TAMSULOSIN HCL 0.4MG SR CAPSULE PO SCH (08:29)
[2019-01-28] MEDS: FOLIC ACID/VITAMIN B COMP W-C TABLET PO SCH (08:29)
[2019-01-28] MEDS: CLOPIDOGREL 75MG TABLET PO SCH (08:30)
[2019-01-28] MEDS: CEFTRIAXONE 1 G PREMIX 50 ML IV SCH (12:24)
[2019-01-28] MEDS: ENOXAPARIN 30MG/0.3ML SYR SUBCUT SCH (13:59)
[2019-01-28] MEDS: HYDRALAZINE HCL 25MG TABLET PO SCH ×2 (13:59→22:04)
[2019-01-28] MEDS: FAMOTIDINE 20MG TABLET PO SCH (22:04)
[2019-01-29] VITALS: BP 182/70
[2019-01-29] MEDS ORDERED: AMLODIPINE 5MG TABLET PO SCH ×2 (00:44→09:00)
[2019-01-29] MEDS: CLONIDINE 0.1MG TABLET PO PRN (00:55)
[2019-01-29 04:00] VITALS: BP 179/72
[2019-01-29] MEDS: HYDRALAZINE HCL 25MG TABLET PO SCH (05:06)
[2019-01-29 08:00] VITALS: BP 165/69
[2019-01-29] MEDS: METOPROLOL TARTRATE 25MG TABLET PO SCH (08:48)
[2019-01-29] MEDS: SEVELAMER CARBONATE 800 MG TABLET PO SCH ×2 (08:49→13:11)
[2019-01-29] MEDS: ASPIRIN 325MG EC TABLET PO SCH (08:49)
[2019-01-29] MEDS: CLOPIDOGREL 75MG TABLET PO SCH (08:49)
[2019-01-29] MEDS: TAMSULOSIN HCL 0.4MG SR CAPSULE PO SCH (08:49)
[2019-01-29] MEDS: FOLIC ACID/VITAMIN B COMP W-C TABLET PO SCH (08:52)
[2019-01-29 12:00] VITALS: BP 142/73
[2019-01-29] MEDS: ACETAMINOPHEN 325MG TABLET PO PRN (13:12)
[2019-01-29] MEDS: CEFTRIAXONE 1 G PREMIX 50 ML IV SCH (13:12)
== END 2019-01-29 14:28 | disposition short-term general hospital (02) | DRG 871 ==
LOC: ER 07:39 → EDBEDREQ 10:15 → 8WST 10:51 → EDBEDREQTM 10:52 → EDBEDREQ 10:52 → ENRESERV 13:00 → 8WST 14:02
PROVIDERS: ADMIT Internal Medicine; ATTEND Internal Medicine
PROC: 5A1D70Z Performance of Urinary Filtration, Intermittent, Less than 6 Hours Per Day (ICD-10-PCS; principal; 2019-01-26)
PROC: 5A1D70Z Performance of Urinary Filtration, Intermittent, Less than 6 Hours Per Day (ICD-10-PCS; 2019-01-27)
DX: A41.9 Sepsis, unspecified organism (principal); N18.6 End stage renal disease; I21.4 Non-ST elevation (NSTEMI) myocardial infarction; I12.0 Hypertensive chronic kidney disease with stage 5 chronic kidney disease or end stage renal disease; E44.1 Mild protein-calorie malnutrition; N13.8 Other obstructive and reflux uropathy; N12 Tubulo-interstitial nephritis, not specified as acute or chronic; E87.5 Hyperkalemia; D63.8 Anemia in other chronic diseases classified elsewhere; B96.4 Proteus (mirabilis) (morganii) as the cause of diseases classified elsewhere; E11.22 Type 2 diabetes mellitus with diabetic chronic kidney disease; E11.51 Type 2 diabetes mellitus with diabetic peripheral angiopathy without gangrene; I25.10 Atherosclerotic heart disease of native coronary artery without angina pectoris; L89.159 Pressure ulcer of sacral region, unspecified stage; E78.5 Hyperlipidemia, unspecified; R33.8 Other retention of urine; F17.210 Nicotine dependence, cigarettes, uncomplicated; N31.2 Flaccid neuropathic bladder, not elsewhere classified; N40.1 Benign prostatic hyperplasia with lower urinary tract symptoms; Z82.49 Family history of ischemic heart disease and other diseases of the circulatory system; Z89.511 Acquired absence of right leg below knee; I25.2 Old myocardial infarction; Z79.82 Long term (current) use of aspirin; Z79.899 Other long term (current) drug therapy; Z99.2 Dependence on renal dialysis; Z68.25 Body mass index [BMI] 25.0-25.9, adult
CPT/HCPCS: 36415; 71045; 74176; 80048; 80061; 80305; 82550; 82553; 82962; 83036; 83880; 84134; 84484; 87077; 87186; 93005; 93306; 93970; 94644; 96374; 99285; A6261; J0696; J1650; J1815; J2270; J2405; J3490; J7030; J7050; J7611

== ENCOUNTER 2023-03-07 04:25 | Emergency (ER) | payer MEDICARE, MEDICAID ==
[~2023-03-07] VITALS: Ht 182.9 cm; Wt 82.0 kg
[~2023-03-07 04:25] MED LIST changes: -ASPI-1159 PO; +ASPI-1497 PO; +DILT240C78 PO; -DILT240C92 PO; -HYDR-3280 PO; +HYDR-4350 PO; +SIMV-345; -SIMV40TA2
[2023-03-07 04:27] VITALS: O2SAT 99
[2023-03-07] MEDS ORDERED: ACETAMINOPHEN 500MG TABLET PO ONE (05:15)
[2023-03-07] MEDS ORDERED: LABETALOL 5MG/ML SYR 20 MG/4 ML SYRINGE IV NR (05:15)
[2023-03-07] MEDS ORDERED: LABETALOL HCL VIAL 20 MG/4 ML VIAL IV ONE (05:15)
[2023-03-07 09:40] VITALS: TEMP 98.3
[2023-03-07 11:33] VITALS: BP 187/78; PULSE 89; RESP 16
== END 2023-03-07 11:43 | disposition home or self-care (01) ==
LOC: ER 04:25
DX: I12.0 Hypertensive chronic kidney disease with stage 5 chronic kidney disease or end stage renal disease (principal); E11.22 Type 2 diabetes mellitus with diabetic chronic kidney disease; N18.6 End stage renal disease
CPT/HCPCS: 36415; 80048; 82962; 96374; 99291; J3490